=== PATIENT | female | born 1965 | race Caucasian/White ===

== ENCOUNTER 2024-08-31 11:21 | Emergency (ER) | payer OTHER, SELFPAY ==
[2024-08-31 11:22] VITALS: BP 184/115
[2024-08-31 11:33] VITALS: BP 156/80
--- NOTE | 2024-08-31 11:36 | EDRN ---
Pt states she arrives for tightness in center and lower sternum. Pain started when eating breakfast this am. Pain is almost gone at this time at 3/10. At its worst was 9-10/10. When pain at its worst pt had nausea, no SOB nor dizziness but did have
a cold sweat when at its worst. Pain also described as squeezing and pinching.
[2024-08-31 11:39] VITALS: BMI 45.9
[2024-08-31 12:00] VITALS: BP 142/85
[2024-08-31 12:03] LABS: % Basophils 0.2 % (0-2); % Eosinophils 2.4 % (0-6); % Immature Granulocytes 0.5 % (0-0.5); % Lymphocytes 32.8 % (20.5-51.1); % Monocytes 6.2 % (1.7-9.3); % Neutrophils 57.9 % (42.2-75.2); Absolute Eosinophils 0.2 10^3/uL (0-0.7); Absolute Lymphocytes 2.2 10^3/uL (1.2-3.4); Absolute Monocytes 0.4 10^3/uL (0.1-0.6); Absolute Neutrophils 3.8 10^3/uL (1.4-6.5); Hematocrit 40.6 % (37.0-47.0); Hemoglobin 13.4 g/dL (12.0-16.0); Mean Corpuscular Hgb 28.8 pg (27.0-31.0); Mean Corpuscular Volume 87.3 fL (81.0-99.0); Mean Platelet Volume 9.5 fL (7.4-10.4); Nucleated Red Blood Cells % 0 %; Platelet Count 267 10^3/uL (130-400); Red Blood Cell Count 4.65 10^6/uL (4.20-5.40); White Blood Cell Count 6.6 10^3/uL (4.8-10.8)
[2024-08-31 12:14] LABS: ALT (SGPT) 37 U/L (0-35); AST (SGOT) 52 U/L (14-36); Albumin 3.7 g/dl (3.5-5.0); Alkaline Phosphatase 116 U/L (38-126); Blood Urea Nitrogen 21 mg/dl (7-17); Calcium 9.1 mg/dl (8.4-10.2); Carbon Dioxide 23 mmol/L (22-30); Chloride 108 mmol/L (98-107); Estimated Creatinine Clearance > 125 ml/min; Glucose 163 mg/dl (70-99); Potassium 3.7 mmol/L (3.5-5.1); Sodium 142 mmol/L (135-145); Total Bilirubin 0.4 mg/dl (0.2-1.3); Total Protein 6.4 g/dl (6.3-8.2); eGFR > 60.00
[2024-08-31 12:27] LABS: Troponin I < 0.012 ng/ml
[2024-08-31 13:05] VITALS: BP 139/87
--- NOTE | 2024-08-31 13:16 | EDRN ---
Lisa SHAH in room w/pt at this time.
--- NOTE | 2024-08-31 13:53 | ED.GENMED ---
History of Present Illness
General
Chief Complaint: Chest Pain
Source: patient
Exam Limitations: none
Time Seen by Provider: 08/31/24 12:14
Nursing documentation reviewed up to this point in time: agreed with
History of Present Illness
History of Present Illness:
59-year-old female past medical history of hypertension presenting to the emergency department today with concerns of central chest pain that developed after breakfast associated nausea feels somewhat like indigestion has since improved and is fully
resolved since arrival. No diaphoresis abdominal pain fevers recent illness.
Past History
Past History
ED Past Medical History: HTN and Hypothyroidism
Social History
Tobacco: Non-smoker
Living: with family
Employment: Employed
Review of Systems
Review of Systems
Allergies reviewed?: Yes
All Other Systems: ROS reviewed and negative except as documented in HPI and ROS
Phy Exam
Physical Exam
Physical Exam:
GENERAL: Alert , in no apparent distress
EYE: pupils equal and reactive
NECK: Supple, no significant adenopathy.
ENT: o/p clr, mmm.
CARDIAC: Regular rate and rhythm .
LUNGS: Clear breath sounds bilaterally, no acute respiratory distress, no wheezes/rales/rhonchi
ABDOMEN: Soft, without focal tenderness, no r/g, no cvat
NEUROLOGICAL: Alert and oriented, no focal neuro deficits
SKIN: Warm and dry, skin intact.
MUSCULOSKELETAL: No edema, well perfused.
PSYCH: Normal and appropriate interaction.
Scores
Heart Score for Chest Pain Patients
STEMI patient?: No
History: Slightly or Non-Suspicious
ECG: Normal
Age: >45 - <65 years
Risk Factors: 1 or 2 Risk Factors
Troponin: </= Normal Limit
Heart Score for Chest Pain Patients: 2
Heart Score Risk: 2.5% MACE over next 6 weeks
Course
Orders/Labs/Results
Orders:
Orders
08/31/24 11:21
Electrocardiogram (*1) Urgent
Reason for Study: Chest Pain
EKG- Treatment ONCE
08/31/24 11:50
Electrocardiogram (*1) Urgent
Reason for Study: Chest Pain
Cardiac Monitoring- Treatment ONCE
EKG- Treatment ONCE
IV Insert/Care/Rem.- Treatment PRN
08/31/24 11:51
Complete Blood Count/With Diff Urgent
Comprehensive Metabolic Panel Urgent
Troponin I Urgent
08/31/24 12:29
Chest [CR Chest - 2 Views ] Urgent
Comment:
Reason For Exam: cp
08/31/24 14:19
Electrocardiogram (*1) Urgent
Reason for Study: Chest Pain
08/31/24 14:25
Troponin I Urgent
08/31/24 15:12
Electrocardiogram (*1) Urgent
Reason for Study: Chest Pain
EKG- Treatment ONCE
Abnormal Lab Results
08/31/24
11:51
Chloride 108 H mmol/L
(98-107)
BUN 21 H mg/dl
(7-17)
Glucose 163 H mg/dl
(70-99)
AST 52 H U/L
(14-36)
ALT 37 H U/L
(0-35)
08/31/24 11:51
08/31/24 11:51
Vital Signs
Initial and Last Documented VS:
Initial Vital Signs
Temp Pulse Resp BP Pulse Ox
98.2 F 94 18 184/115 100
08/31/24 11:22 08/31/24 11:22 08/31/24 11:22 08/31/24 11:22 08/31/24 11:22
Last Documented Vital Signs
Temp Pulse Resp BP Pulse Ox
98.2 F 83 26 139/87 99
08/31/24 11:22 08/31/24 13:15 08/31/24 13:15 08/31/24 13:05 08/31/24 13:15
MDM/Problems Addressed
MDM/Problems Addressed:
59-year-old female past medical history of hypertension presenting to the emergency department today with concerns of central chest pain that developed after breakfast associated nausea feels somewhat like indigestion has since improved and is fully
resolved since arrival. Initial assessment labs EKG and troponin negative. Plan for repeated troponin and EKG. repeated troponin EKG normal. Patient appears stable for outpatient follow-up. Return precautions given.
*Critical Care Note
Total Time (30-74mins, 75-104mins- exclusive of procedures): Not Applicable
ED Attending Note
-
Portions of this chart may have been created with voice recognition software.� Occasional wrong word or��sound alike� substitutions may have occurred due to the inherent limitations of voice recognition software.
Discharge Plan
Departure
Patient Disposition: Home (Routine Discharge)
Date of Disposition: 08/31/24
Time of Disposition: 15:38
Patient with high blood pressure during this ER visit?: No
Condition: Good
Covid-19: Not Applicable
Discharge Problem:
Chest pain
Instructions: Chest Pain CBC Follow Up
Prescriptions:
No Action
hydrocodone-acetaminophen 1 TABLET tablet
1 tab PO Q4HPRN PRN (Reason: severe pain) Qty: 8 0RF
tamsulosin 0.4 MG capsule
0.4 mg PO DAILY Qty: 7 0RF
ondansetron 4 MG tablet,disintegrating
4 mg PO TIDPRN PRN (Reason: n/v) Qty: 6 0RF
Referrals:
Isacc Mason PA-C [Family Provider] -
Activity Restrictions/Additional Instructions:
You came to the emergency department today with concerns of chest pain. Here your reassuring assessment. Please follow-up closely with cardiology. Return to the emergency department any worsening, new or concerning symptoms.
Interventions
Interventions:
*Risk Screen - Suicide Last Done: 08/31/24 11:22
*General Assessment Last Done: 08/31/24 11:22
*Neglect/Abuse Screening Last Done: 08/31/24 11:22
ED- Fall Risk Assessment Last Done: 08/31/24 11:40
*ED COVID-19 Vaccine History Last Done: 08/31/24 11:40
ED- Cardiac Assessment Last Done: 08/31/24 11:45
Discharge Date and Time
Print Language: DANISH
[2024-08-31 14:00] VITALS: BP 123/81
[2024-08-31 14:58] LABS: Troponin I < 0.012 ng/ml
[2024-08-31 15:00] VITALS: BP 123/75
== END 2024-08-31 16:12 | disposition home or self-care (01) ==
LOC: EMR 11:21
PROVIDERS: Physician Assistant; EMERGENCY PHYSICIAN Student in an Organized Health Care Education/Training Program; FAMILY PHYSICIAN Physician Assistant Medical
DX: R07.89 Other chest pain (principal); I10 Essential (primary) hypertension
CPT/HCPCS: 99285; 71046; 80053; 84484; 85025; 93005